=== PATIENT | female | born 1950 ===

== ENCOUNTER 2021-04-06 10:15 | Inpatient (IN) | payer OTHER ==
[~2021-04-06] VITALS: Ht 160 cm; Wt 56.7 kg
[2021-04-10] MEDS ORDERED: LANTUS SOL100 UNIT/1 (14:12)
[2021-04-10] MEDS ORDERED: LIPITOR40 M1 PO (14:13)
[2021-04-10] MEDS ORDERED: PEPCID PO (14:13)
[2021-04-10] MEDS ORDERED: JANUMET XR 50-1 EAC1 PO (14:13)
[2021-04-10] MEDS ORDERED: ATAC PO (14:14)
[2021-04-10] MEDS ORDERED: METOPROLOL SUCC50 MG PO (14:14)
[2021-04-10] MEDS ORDERED: MEGEST (14:15)
[2021-04-10] MEDS ORDERED: PROTONIX20 MG (14:15)
[2021-04-12] MEDS ORDERED: LOPERAMIDE2 MG (11:04)
[2021-04-12] MEDS ORDERED: FAMOTIDINE40 MG (11:04)
[2021-04-12] MEDS ORDERED: CANDESARTAN CILE8 M1 (11:05)
[2021-04-12] MEDS ORDERED: GENTAK3.5 GM (11:05)
[2021-04-12] MEDS ORDERED: PACLITAXEL6 MG/1 ML (11:10)
[2021-04-12] MEDS ORDERED: ONDANSETRON4 MG/2 M5 (11:10)
[2021-04-12] MEDS ORDERED: CARBOPLATI10 MG/1 ML (11:10)
[2021-04-12] MEDS ORDERED: DIPHENHYDR50 MG/1 M1 (11:10)
[2021-04-12] MEDS ORDERED: DEXAMETHASO4 MG/1 M1 (11:10)
[2021-04-12] MEDS ORDERED: FAMOTIDINE20 MG/2 M1 (11:10)
[2021-04-12] MEDS ORDERED: FUROSEMIDE20 MG (11:11)
[2021-04-12] MEDS ORDERED: ONDANSETRON HCL4 MG (11:11)
[2021-04-12] MEDS ORDERED: CHLORTHALIDONE25 MG (11:11)
[2021-04-12] MEDS ORDERED: LOSARTAN POTASS25 MG (11:11)
[2021-04-12] MEDS ORDERED: CARVEDILOL3.125 M1 (11:11)
[2021-04-12] MEDS ORDERED: SIMVASTATIN40 MG (11:11)
[2021-04-12] MEDS ORDERED: CEFADROXIL500 MG (11:11)
[2021-04-12] MEDS ORDERED: SPIRONOLACTONE50 MG (11:12)
[2021-04-12] MEDS ORDERED: LACTULOSE10 GM/152 (11:12)
[2021-04-12] MEDS ORDERED: MEGESTROL ACETA20 MG PO (11:14)
== END 2021-04-16 10:23 | disposition home or self-care (01) | DRG 737 ==
LOC: SURG-SUITE 04-12 05:45 → O/R 04-12 05:45 → OB/GYN 04-12 07:00 → SURG-SUITE 04-12 14:10
PROVIDERS: ADMIT Obstetrics & Gynecology Gynecologic Oncology; ATTEND Obstetrics & Gynecology Gynecologic Oncology
PROC: 0DBU0ZZ Excision of Omentum, Open Approach (ICD-10-PCS; 2021-04-12)
PROC: 0UT20ZZ Resection of Bilateral Ovaries, Open Approach (ICD-10-PCS; 2021-04-12)
PROC: 0UT70ZZ Resection of Bilateral Fallopian Tubes, Open Approach (ICD-10-PCS; 2021-04-12)
PROC: 0DBW0ZZ Excision of Peritoneum, Open Approach (ICD-10-PCS; 2021-04-12)
PROC: 0UT90ZZ Resection of Uterus, Open Approach (ICD-10-PCS; principal; 2021-04-12 07:00)
DX: C56.1 Malignant neoplasm of right ovary (principal); C77.5 Secondary and unspecified malignant neoplasm of intrapelvic lymph nodes; C78.6 Secondary malignant neoplasm of retroperitoneum and peritoneum; C56.2 Malignant neoplasm of left ovary; N84.0 Polyp of corpus uteri; D25.1 Intramural leiomyoma of uterus